=== PATIENT | female | born 1960 | race Caucasian/White ===

== ENCOUNTER 2020-06-13 07:50 | Outpatient (CLI) | payer OTHER, SELFPAY ==
--- NOTE | ~2020-06-13 | DEXA_ITS ---
Bone Density Report Name: Coral Mendez Age: 59 Sex: Female Ethnicity: White Date of : 1960 Indication: postmenopausal; hysterectomy; rheumatoid arthritis; Referring Provider: Ankita Patel Study: Bone densitometry was performed. Exam Date: June 13, 2020 Accession number: [id number] Bone Density: Region BMD T-score Z-score Classification AP Spine (L1-L4) 0.932 -1.0 0.5 Normal Femoral Neck (Left) 0.913 0.6 1.9 Normal Total Hip (Left) 1.131 1.6 2.6 Normal Total Hip Bilateral Avg 1.164 1.8 2.8 Normal Femoral Neck (Right) 0.897 0.4 1.8 Normal Total Hip (Right) 1.196 2.1 3.1 Normal World Health Organization criteria for BMD impression classify patients as: Normal (T-score at or above -1.0), Osteopenia (T-score between -1.0 and -2.5), or Osteoporosis (T-score at or below -2.5). 10-year Fracture Risk: FRAX not reported because: All T-scores for Spine Total, Hip Total, Femoral Neck at or above -1.0 Previous Exams: Region Exam Age BMD T-score BMD Change BMD Change Date g/cm2 vs Baseline vs Previous AP Spine(L1-L4) 06/13/2020 59 0.932 -1.0 -0.124(-11.7%) -0.043(-4.5%)* 01/27/2016 55 0.976 -0.6 -0.080(-7.6%)# -0.041(-4.0%)# 01/18/2014 53 1.016 -0.3 -0.039(-3.7%)# -0.005(-0.4%) 10/12/2011 51 1.021 -0.2 -0.035(-3.3%)# -0.035(-3.3%)# 08/04/2009 49 1.056 0.1 Total Hip(Left) 06/13/2020 59 1.131 1.6 0.002(0.1%)# 0.011(1.0%) 01/27/2016 55 1.120 1.5 -0.009(-0.8%)# 0.031(2.8%)# 01/18/2014 53 1.089 1.2 -0.040(-3.6%)# -0.094(-8.0%)* 10/12/2011 51 1.184 2.0 0.054(4.8%)# 0.054(4.8%)# 08/04/2009 49 1.130 1.5 Total Hip(Right) 06/13/2020 59 1.196 2.1 0.022(1.9%)# 0.036(3.1%)* 01/27/2016 55 1.161 1.8 -0.014(-1.2%)# -0.002(-0.2%)# 01/18/2014 53 1.163 1.8 -0.012(-1.0%)# 0.013(1.1%) 10/12/2011 51 1.150 1.7 -0.024(-2.1%)# -0.024(-2.1%)# 08/04/2009 49 1.174 1.9 *Denotes significance at 95% confidence level, LSC for AP Spine = 0.022 g/cm2, LSC for Total Hip = 0.027 g/cm2 Clinical Information Provided by Patient: Has rheumatoid arthritis Has used the following medications: Vitamin D Has the following medical conditions: Hysterectomy Patient maximum height was 66 Menopause Age: 45 No regular weight bearing exercise Drinks caffeinated beverages Onset of menses at age 11 Number of children 3 Impression: The patient has normal bone mass.
--- NOTE | ~2020-06-13 | MM_ITS ---
EXAMINATION: MM screening [facility] HISTORY: Screening mammogram TECHNIQUE: Craniocaudal and mediolateral oblique 3-D tomosynthesis images were obtained and synthetic 2-D images were generated. CAD analysis was submitted and interpreted. COMPARISON: 05/14/2019, 05/12/2018, 05/07/2017 BREAST PARENCHYMAL COMPOSITION: There are scattered areas of fibroglandular density. FINDINGS: There is no evidence of suspicious mass, calcification, or architectural distortion to sugg est malignancy in either breast. There has been no suspicious interval change. IMPRESSION: 1. No mammographic evidence of malignancy. 2. Recommend routine screening mammography in one year. BI-RADS Category 1: Negative Reviewed, dictated and finalized at location A.
== END 2020-06-13 07:51 | disposition home or self-care (01) ==
PROVIDERS: PCP Internal Medicine; Visit Provider Student in an Organized Health Care Education/Training Program
DX: Z12.31 Encounter for screening mammogram for malignant neoplasm of breast (principal); Z78.0 Asymptomatic menopausal state
CPT/HCPCS: 77063; 77067; 77080

== ENCOUNTER 2021-03-03 08:42 | Outpatient (CLI) | payer OTHER, SELFPAY ==
--- NOTE | ~2021-03-03 | CT_ITS ---
EXAMINATION: CT abdomen pelvis wo con EXAM DATE: 03/03/2021 08:56 INDICATION: K57.92 - Diverticulitis of intestine, part unspecified, without perforation or abscess wi thout bleeding. TECHNIQUE: Spiral CT of the abdomen and pelvis was performed without contrast. Axial, coronal and s agittal images of the abdomen and pelvis were reviewed. The dose-length product (DLP) for this exami nation was 1438.18 mGy-cm. The exposure was tailored according to patient size (auto mA exposure con trol), and iterative reconstruction (ASIR) was used as additional dose reduction technique. Compariso n is made to prior examination from 09/14/2011. FINDINGS: There is mild to moderate sigmoid and mild descending colonic diverticulosis. There is mild inflammation at the descending/sigmoid colonic junction, appearance consistent with acute uncomplica marquis diverticulitis. This is a different segment and was effected in 2010. The liver, spleen, adrenal glands and pancreas are unremarkable. Gallbladder is unremarkable. No bi liary obstruction. There is no nephrolithiasis or hydronephrosis. The uterus is not identified and has likely been surgically resected. The bladder is unremarkable. There is no retroperitoneal or p elvic lymphadenopathy. There is mild scattered arteriosclerotic disease. The appendix is normal. The stomach and small bowel are unremarkable. There is expected amount of c olonic stool. No free intraperitoneal gas. The heart is normal in size. There are no pericardial or pleural effusions. The lung bases are unremarkable. There are no osteoblastic or osteolytic les ions identified. IMPRESSION: 1. Mild uncomplicated descending/sigmoid colonic diverticulitis. Reviewed, dictated and finalized at location B.
== END 2021-03-03 08:43 | disposition home or self-care (01) ==
LOC: ANHIMG 08:43
PROVIDERS: PCP Internal Medicine; Visit Provider Internal Medicine
DX: K57.32 Diverticulitis of large intestine without perforation or abscess without bleeding (principal)
CPT/HCPCS: 74176

== ENCOUNTER 2021-04-17 01:07 | Day surgery (SDC) | payer OTHER, SELFPAY ==
[2021-03-30 14:32] VITALS: BMI 39.8
[2021-04-17 09:13] VITALS: BP 137/75; PULSE 88; RESP 18; TEMP 36.5; O2SAT 100
[2021-04-17] MEDS: LACTATED RINGERS 1,000 ML 150 ML IV CONT (09:27)
[2021-04-17 09:30] LABS: Glucose Point of Care 115 mg/dl (65-105)
--- NOTE | 2021-04-17 09:42 | WPDANESEPPF ---
Anes - Initial Pre Proc Eval Procedure: Operation Date: 04/17/21 10:15 Proposed Procedures p Colonoscopy - Vamsi Lovelace MD Date/Time: 04/17/21 09:42 Surgeon: Vamsi Lovelace MD Pre Op Diagnosis: Diverticulitis Patient Data Age: 60 Gender: F Height: 1.68 m Weight: 111.7 kg Last Vital Signs Temp 36.5 C 04/17/21 09:13 Pulse 88 04/17/21 09:13 Resp 18 04/17/21 09:13 BP 137/75 04/17/21 09:13 Pulse Ox 100 04/17/21 09:13 Allergies Allergy/AdvReac Type Severity Reaction Status Date / Time Cephalosporins Allergy Severe ITCHEY Verified 04/17/21 09:12 ibuprofen Allergy Severe EARS Verified 04/17/21 09:12 RINGING naproxen Allergy Severe ITCHEY Verified 04/17/21 09:12 lactose Allergy Intermediate Diarrhea Verified 04/17/21 09:12 NSAIDS (Non-Steroidal Allergy Mild Other Verified 04/17/21 09:12 Anti-Inflamma cephalexin [From Keflex] Allergy Unknown Itching Verified 04/17/21 09:12 Influenza Virus Vaccines Allergy Unknown RASH Verified 04/17/21 09:12 band aid adhessive AdvReac Unknown blisters Uncoded 04/17/21 09:12 Home Medications Medication Instructions Recorded Confirmed Type hydroxychloroquine 200 mg tablet 200 mg PO BID 09/18/19 04/17/21 History vitamin B complex 1 tablet PO DAILY 09/18/19 04/17/21 History fexofenadine 180 mg tablet 180 mg PO DAILY 11/04/19 04/17/21 History meloxicam 15 mg tablet 15 mg PO DAILY 11/04/19 04/17/21 History atorvastatin 10 mg tablet 10 mg PO DAILY #90 tablet 07/11/20 04/17/21 Rx metformin 500 mg tablet,extended 500 mg PO BID #180 tablet 07/11/20 04/17/21 Rx release 24 hr olmesartan 40 mg tablet 40 mg PO DAILY #90 tablet 07/11/20 04/17/21 Rx spironolactone 25 mg tablet 25 mg PO DAILY #90 tablet 07/11/20 04/17/21 Rx levothyroxine 150 mcg tablet 150 mcg PO DAILY #90 tablet 12/09/20 04/17/21 Rx cholecalciferol (vitamin D3) 50 50 mcg PO DAILY 03/21/21 04/17/21 History mcg (2,000 unit) capsule Laboratory Tests 04/17/21 09:26 POC Capillary Glucose 115 mg/dl H mg/dl (65-105) Patient hx anesthesia problems: none Family hx anesthesia problems: none PMFSH Past Medical History Medical History Acute pain of left knee Anxiety Arthritis Asthma Bronchitis Cervical vertebral fusion Constipation CPAP (continuous positive airway pressure) dependence DDD (degenerative disc disease) Depression Diarrhea Diverticulitis Diverticulosis Dizziness DM2 (diabetes mellitus, type 2) Fibroids Gout High cholesterol History of chemotherapy HTN (hypertension) Hyperlipidemia 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 Myofascial pain syndrome Pneumonia Rectal polyp Rheumatoid arthritis Sleep apnea Spinal stenosis UTI (urinary tract infection) Vertigo Wears glasses Surgical History Surgical History H/O spinal fusion H/O thyroidectomy H/O tubal ligation H/O: hysterectomy History of carpal tunnel release History of tonsillectomy Medial collateral ligament sprain of knee Family History Family History Mother Hypertension Family history of cardiovascular disease Family history of congestive heart failure Family history of hypercholesterolemia Cerebrovascular accident Family history of diabetes mellitus in first degree relative Family history of coronary artery disease Family history of premature coronary heart disease Family history of elevated blood lipids Family history of sleep apnea Family history of heart disease in male family member before age 55 Diabetes mellitus Patient's mother is in good health Grandparent Hypertension Family history of malignant neoplasm of breast Family history of coronary artery disease Diabetes mellitus Father Cerebrovascular accident Family history of alcoholism Patient's father is in good health Sibling Hypertens
--- NOTE | 2021-04-17 10:01 | PM.HPGS ---
History of Present Illness History of Present Illness Consent: Risks, benefits, and alternatives have been discussed and questions answered. Patient agrees to proceed with procedure. Chief complaint: Diverticulitis Narrative: Coral Mendez is a 60 year old female with colon polyps, last colonoscopy about 5 years ago. Two months ago had diverticulitis now asymptomatic. Review of Systems Constitutional: Constitutional: Denies headache(s) and Denies weakness Eyes: Eyes: Denies blurry vision ENT: Reports Normal hearing present, Denies headache(s) and Denies neck pain Cardiovascular: Cardiovascular: Denies chest pain and Denies dyspnea Respiratory: Respiratory: Denies dyspnea Gastrointestinal: Gastrointestinal: Reports no additional gastrointestinal complaints Genitourinary: Genitourinary: Denies dysuria Musculoskeletal: Musculoskeletal: Denies neck pain Integumentary/Breasts: Skin/Breast: Denies dry skin Neurologic: Reports Normal hearing present, Denies headache(s) and Denies weakness Psychiatric: Psychiatric: Denies anxiety Endocrine: Endocrine: Denies change in body appearance Hematologic/Lymphatic: Hematologic/Lymphatic: Denies easy bleeding Allergic/Immunologic: Allergic/Immunologic: Denies urticaria PMFSH Past Medical History Medical History Acute pain of left knee Anxiety Arthritis Asthma Bronchitis Cervical vertebral fusion Constipation CPAP (continuous positive airway pressure) dependence DDD (degenerative disc disease) Depression Diarrhea Diverticulitis Diverticulosis Dizziness DM2 (diabetes mellitus, type 2) Fibroids Gout High cholesterol History of chemotherapy HTN (hypertension) Hyperlipidemia 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 Myofascial pain syndrome Pneumonia Rectal polyp Rheumatoid arthritis Sleep apnea Spinal stenosis UTI (urinary tract infection) Vertigo Wears glasses Surgical History Surgical History H/O spinal fusion H/O thyroidectomy H/O tubal ligation H/O: hysterectomy History of carpal tunnel release History of tonsillectomy Medial collateral ligament sprain of knee Family History Family History Mother Hypertension Family history of cardiovascular disease Family history of congestive heart failure Family history of hypercholesterolemia Cerebrovascular accident Family history of diabetes mellitus in first degree relative Family history of coronary artery disease Family history of premature coronary heart disease Family history of elevated blood lipids Family history of sleep apnea Family history of heart disease in male family member before age 55 Diabetes mellitus Patient's mother is in good health Grandparent Hypertension Family history of malignant neoplasm of breast Family history of coronary artery disease Diabetes mellitus Father Cerebrovascular accident Family history of alcoholism Patient's father is in good health Sibling Hypertension Family history of alcoholism Other Carcinoma of colon Depression Family history of bipolar disorder Heart disease Social History Social History Smoking packs per day: 1 Smoking cigarettes per day: 20.0 Years smoked: 4 Smoking pack-years: 4.00 Smoking status: Former smoker Tobacco type: cigarettes Second hand tobacco smoke exposure: No Smoking end date: 09/16/91 Alcohol intake: never Living arrangements: with family Gender identity (if verbalized by the patient): Female Spiritual care concerns: No Meds Home Medications and Allergies Home Medications Medication Instructions Recorded Confirmed Type hydroxychloroquine 200 mg tablet 200 mg PO BID 09/18/19 04/17/21 History vitamin B complex 1 tablet PO DAILY 09/18/19 04/17/21 History fexofe
[2021-04-17 10:22] VITALS: BP 126/78; PULSE 77; RESP 17; O2SAT 98
[2021-04-17 10:32] VITALS: BP 128/78; PULSE 75; RESP 21; O2SAT 99
[2021-04-17 10:37] VITALS: BP 128/71; PULSE 75; RESP 21; O2SAT 99
[2021-04-17 10:42] VITALS: BP 128/79; PULSE 71; RESP 18; O2SAT 99
== END 2021-04-17 10:48 | disposition home or self-care (01) ==
PROVIDERS: PCP Internal Medicine; Visit Provider Internal Medicine Gastroenterology
PROC: 0DJD8ZZ Inspection of Lower Intestinal Tract, Via Natural or Artificial Opening Endoscopic (ICD-10-PCS; CPT 45378; principal; 2021-04-17 10:15)
DX: Z12.11 Encounter for screening for malignant neoplasm of colon (principal); K57.30 Diverticulosis of large intestine without perforation or abscess without bleeding; K64.8 Other hemorrhoids; Z86.010 Personal history of colon polyps; Z87.19 Personal history of other diseases of the digestive system; F41.8 Other specified anxiety disorders; E11.9 Type 2 diabetes mellitus without complications; I10 Essential (primary) hypertension; E78.5 Hyperlipidemia, unspecified; M06.9 Rheumatoid arthritis, unspecified; J45.909 Unspecified asthma, uncomplicated; M10.9 Gout, unspecified; G47.30 Sleep apnea, unspecified; Z98.1 Arthrodesis status; Z87.891 Personal history of nicotine dependence; Z79.84 Long term (current) use of oral hypoglycemic drugs
CPT/HCPCS: 45378; 82948; J2704; J7120

== ENCOUNTER 2021-04-27 11:03 | Outpatient (CLI) | payer OTHER, SELFPAY ==
--- NOTE | ~2021-04-27 | XR_ITS ---
EXAMINATION: XR knee LT min 4V DATE: 04/27/2021 11:29 INDICATION: Rheumatoid arthritis with rheumatoid factor. TECHNIQUE: 4 views of left knee were obtained. COMPARISON: Left knee radiographs 09/10/2019 FINDINGS: Bone alignment is normal. No fracture. There is mild osteoarthritis of medial and patellofe moral compartments characterized by tiny marginal osteophytes. No knee joint effusion. IMPRESSION: 1. Mild left knee osteoarthritis. Reviewed, dictated and finalized at location A.
--- NOTE | ~2021-04-27 | XR_ITS ---
EXAMINATION: XR knee RT min 4V DATE: 04/27/2021 11:29 INDICATION: Rheumatoid arthritis. TECHNIQUE: 4 views of right knee were obtained. COMPARISON: None. FINDINGS: Bone alignment is normal. No fracture. There is mild tricompartmental osteoarthritis. No kn ee joint effusion. IMPRESSION: 1. Mild right knee osteoarthritis. Reviewed, dictated and finalized at location A.
--- NOTE | ~2021-04-27 | XR_ITS ---
EXAMINATION: HAND-DEEPTHI ARTHRITIS 3+VIEWS DATE: 04/27/2021 11:29 INDICATION: Rheumatoid arthritis with rheumatoid factor. TECHNIQUE: Posteroanterior, lateral, and oblique views of the left and of the right hands as well as a ballcatchers view of both hands were obtained. COMPARISON: None. FINDINGS: Bone alignment is normal at the bilateral hands and wrists. No fractures. Polyarticular osteoarthriti s characterized by minimal to mild nonuniform joint space narrowing and tiny marginal osteophytes wit h typical distribution at the distal radioulnar, radiocarpal, triscaphe, first carpometacarpal and mu ltiple metacarpophalangeal and interphalangeal joints. No erosions to suggest an inflammatory arthrit is. Soft tissues are unremarkable. IMPRESSION: 1. Minimal to mild polyarticular osteoarthritis at the bilateral hands and wrists. No erosions to sug gest an inflammatory arthritis Reviewed, dictated and finalized at location A. IMPRESSION: 1. Minimal to mild polyarticular osteoarthritis at the bilateral hands and wris ts. No erosions to suggest an inflammatory arthritis
--- NOTE | ~2021-04-27 | XR_ITS ---
EXAMINATION: XR foot LT standing 2V, XR foot RT standing 2V DATE: 04/27/2021 11:29 INDICATION: Rheumatoid arthritis with rheumatoid factor TECHNIQUE: 1. Dorsoplantar and lateral views of the left foot were obtained. 2. Dorsoplantar and lateral views of the right foot were obtained. COMPARISON: None. FINDINGS: Normal alignment at the bilateral feet. No fracture. Mild polyarticular osteoarthritis with typical d istribution at the bilateral mid and forefeet including the bilateral first metatarsophalangeal and s everal tarsal metatarsal and interphalangeal joints. No erosions to suggest inflammatory arthritis loya ch as rheumatoid. Bilateral moderate-sized plantar calcaneal spurs. Soft tissues are unremarkable. No ankle joint effusions. IMPRESSION: 1. Relatively symmetric typical pattern of mild polyarticular osteoarthritis at the bilateral feet. Reviewed, dictated and finalized at location A. IMPRESSION: 1. Relatively symmetric typical pattern of mild polyarticular osteoarthritis at the bilateral feet.
== END 2021-04-27 11:04 | disposition home or self-care (01) ==
PROVIDERS: PCP Internal Medicine; Visit Provider Internal Medicine
DX: M06.872 Other specified rheumatoid arthritis, left ankle and foot (principal); M06.871 Other specified rheumatoid arthritis, right ankle and foot; M06.862 Other specified rheumatoid arthritis, left knee; M06.861 Other specified rheumatoid arthritis, right knee; M06.842 Other specified rheumatoid arthritis, left hand; M06.841 Other specified rheumatoid arthritis, right hand
CPT/HCPCS: 73130; 73564; 73620

== ENCOUNTER 2021-06-15 08:00 | Outpatient (CLI) | payer OTHER, SELFPAY ==
--- NOTE | ~2021-06-15 | MM_ITS ---
EXAMINATION: MM screening [facility] HISTORY: Screening TECHNIQUE: Craniocaudal and mediolateral oblique 3-D tomosynthesis images were obtained and synthetic 2-D images were generated. CAD analysis was submitted and interpreted. COMPARISON: Comparison to multiple prior studies sequentially, with oldest reviewed study dated 02/2015. BREAST PARENCHYMAL COMPOSITION: There are scattered areas of fibroglandular density. FINDINGS: There is no evidence of suspicious mass, calcification, or architectural distortion to sugg est malignancy in either breast. There has been no suspicious interval change. IMPRESSION: 1. No mammographic evidence of malignancy. 2. Recommend routine screening mammography in one year. BI-RADS Category 1: Negative Reviewed, dictated and finalized at location A.
== END 2021-06-15 08:01 | disposition home or self-care (01) ==
LOC: ANHIMG 08:01
PROVIDERS: PCP Internal Medicine; Visit Provider Student in an Organized Health Care Education/Training Program
DX: Z12.31 Encounter for screening mammogram for malignant neoplasm of breast (principal)
CPT/HCPCS: 77063; 77067

== ENCOUNTER → 2021-07-06 03:06 | Outpatient (CLI) | payer OTHER, SELFPAY ==
[2021-07-06 17:42] LABS: SARS-CoV-2 RNA PCR Negative
== END ==
PROVIDERS: PCP Internal Medicine; Visit Provider Internal Medicine
DX: Z20.822 Contact with and (suspected) exposure to COVID-19 (principal); B34.9 Viral infection, unspecified
CPT/HCPCS: C9803; U0003; U0005

== ENCOUNTER 2021-07-07 08:13 | Outpatient (CLI) | payer OTHER, SELFPAY ==
[2021-07-07 08:36] LABS: Add Urine Microscopic? YES; Appearance Urine Cloudy (Clear); Bacteria Urine Trace /hpf; Bilirubin Urine Negative (Negative); Blood Urine 1+ (Negative); Color Urine Yellow (Yellow); Glucose Urine UA 3+ mg/dL (Negative); Ketones Urine Negative (Negative); Leukocyte Esterase Ur 3+ LEU/UL (Negative); Mucus Urine Rare /lpf; Nitrate Urine Negative (Negative); Protein Urine Negative (Negative); Specific Grav Ur 1.007 (1.001-1.035); Squamous Epithelial Cell Urine Many /hpf (Few); Urobilinogen Urine Negative mg/dL (<2.0); WBC Urine >75 /hpf
== END 2021-07-07 08:14 | disposition home or self-care (01) ==
PROVIDERS: PCP Internal Medicine; Visit Provider Internal Medicine
DX: N39.0 Urinary tract infection, site not specified (principal)
CPT/HCPCS: 81001; 87077; 87086; 87186

== ENCOUNTER 2022-05-14 08:30 | Outpatient (CLI) | payer OTHER, SELFPAY ==
--- NOTE | 2022-05-14 | EST_ITS ---
Patient Info Name: Coral Mendez Age: 61 years : 1960 Gender: Female Ht: 66 in Wt: 255 lbs BSA: 2.38 m2 HR: 84 bpm BP: 107 / 53 mmHg Heart Rhythm: Sinus Rhythm Exam Date: 05/14/2022 9:45 AM Exam Location: [facility] Stress Patient Status: Outpatient Admit Date: 05/14/2022 Staff Ordering Physician: FALGUNI RAMIREZ MD Attending Provider: FALGUNI RAMIREZ MD Exercise Technologist: Anna Hernandez CT Nurse: lila bright Exam Type: CA stress mary w NM Study Info Indications Z01.810 - Encounter for preprocedural cardiovascular examination A regadenoson stress test was performed. Summary 1. Normal sinus rhythm - normal ECG. 2. No ST or T abnormalities noted following Lexiscan injection. 3. Clinically and electrocardiographically unremarkable Lexiscan stress test. 4. Myocardial perfusion imaging exam to be reported by Radiology. Protocol: Lexiscan Stress ECG Details Stage: REST Duration (min): 1 min : 9 sec HR (bpm): 85 SBP (mmHg): 107 DBP (mmHg): 53 Stage: REST Duration (min): 7 min : 34 sec HR (bpm): 84 SBP (mmHg): 107 DBP (mmHg): 53 Stage: STAGE 1 Duration (min): 0 min : 59 sec HR (bpm): 111 SBP (mmHg): 112 DBP (mmHg): 51 Stage: RECOVERY Duration (min): 1 min : 0 sec HR (bpm): 102 SBP (mmHg): 112 DBP (mmHg): 51 Stage: RECOVERY Duration (min): 2 min : 0 sec HR (bpm): 100 SBP (mmHg): 112 DBP (mmHg): 51 Stage: RECOVERY Duration (min): 3 min : 0 sec HR (bpm): 98 SBP (mmHg): 108 DBP (mmHg): 55 Stage: RECOVERY Duration (min): 3 min : 10 sec HR (bpm): 98 SBP (mmHg): 108 DBP (mmHg): 55 Rest HR: 84 bpm Peak HR: 112 bpm Rest Sys BP: 107 mmHg Peak Sys BP: 112 mmHg Max Pred HR: 157 bpm % Max Pred HR: 71 % Target HR: 133 bpm Max RPP: 12,544 bpm*mmHg Termination Reason: Completed protocol Cardiac Symptoms: None Total Time: 1 min : 0 sec Rest Piper BP: 53 mmHg Peak Piper BP: 51 mmHg Total Dose: 0.4 mg Resting ECG Normal sinus rhythm - normal ECG. Stress ECG No ST or T abnormalities noted following Lexiscan injection. Report Signatures
--- NOTE | ~2022-05-14 | NM_ITS ---
EXAMINATION: NM mary stress w perfusion DATE: 05/14/2022 10:58 INDICATION: Abnormal electrocardiogram. Preop. TECHNIQUE: Rest images were obtained following intravenous administration of 10.1 mCi Tc99m tetrofosm in (Myoview). The patient was infused intravenously with Lexiscan (regadenoson). Then, 31.78 mCi Tc99 m tetrofosmin (Myoview) was administered intravenously, and stress images were obtained. Data was rec onstructed into short axis and horizontal and vertical long axis SPECT images. Gated SPECT images wer e also obtained. COMPARISON: None. FINDINGS: There is no definite reversible or fixed perfusion abnormality to suggest ischemia or infar ction. There is no segmental wall motion abnormality. Left ventricular ejection fraction measures 6 1%. IMPRESSION: 1. No definite ischemia or infarct. 2. Normal left ventricular ejection fraction measuring 61%. Reviewed, dictated and finalized at location A.
== END 2022-05-14 08:31 | disposition home or self-care (01) ==
PROVIDERS: PCP Physician Assistant
DX: Z01.810 Encounter for preprocedural cardiovascular examination (principal)
CPT/HCPCS: 78452; 93017; A9502; J2785

== ENCOUNTER 2023-02-01 07:32 | Outpatient (CLI) | payer OTHER, SELFPAY ==
--- NOTE | ~2023-02-01 | MM_ITS ---
EXAMINATION: MM screening [facility] HISTORY: Screening mammogram TECHNIQUE: Craniocaudal and mediolateral oblique 3-D tomosynthesis images were obtained and synthetic 2-D images were generated. CAD analysis was submitted and interpreted. COMPARISON: 06/15/2021, 06/13/2020, 05/14/2019 BREAST PARENCHYMAL COMPOSITION: There are scattered areas of fibroglandular density. FINDINGS: No suspicious mass, calcification, or architectural distortion are identified in either bell ast to suggest malignancy. There has been no suspicious interval change. IMPRESSION: 1. No mammographic evidence of malignancy. 2. Recommend routine screening mammography in one year. BI-RADS Category 1: Negative Reviewed, dictated and finalized at location A.
== END 2023-02-01 07:33 | disposition home or self-care (01) ==
LOC: ANHIMG 07:35
PROVIDERS: PCP Physician Assistant; Visit Provider Registered Nurse
DX: Z12.31 Encounter for screening mammogram for malignant neoplasm of breast (principal)
CPT/HCPCS: 77063; 77067

== ENCOUNTER 2023-05-05 08:21 | Emergency (ER) | payer OTHER, SELFPAY ==
[2023-05-05 08:31] VITALS: BP 130/61; PULSE 106; RESP 18; TEMP 37; O2SAT 99
[2023-05-05 08:34] VITALS: BP 130/61; PULSE 106; RESP 18; TEMP 37; O2SAT 99
--- NOTE | 2023-05-05 08:44 | ED.GENADULT ---
HPI - General Adult General Chief complaint: Fever Stated complaint: fever Time Seen by Provider: 05/05/23 08:44 Source: patient Mode of arrival: ambulatory Limitations: no limitations History of Present Illness HPI narrative: 62-year-old female patient presents to the [facility] with complaints of fever as high as 101 that started yesterday along with body aches, low back pain and nausea. Patient states she has had UTIs before in the past but is very day when asked about any pain with urination or increase in frequency. Patient states she just overall does not feel well. Patient states that she has been vaccinated for COVID. Denies any chest pain, shortness of breath. Denies any nausea vomiting. Denies any congestion runny nose or sore throat. Related Data Home Medications Medication Instructions Recorded Confirmed vitamin B complex (B 1 tablet PO DAILY 09/18/19 05/05/23 Complex-Vitamin B12 tablet) fexofenadine 180 mg tablet 180 mg PO DAILY 11/04/19 05/05/23 (Sarah Allergy) cholecalciferol (vitamin D3) 50 25 mcg PO DAILY 10/29/22 05/05/23 mcg (2,000 unit) capsule pregabalin 25 mg capsule 25 mg PO BID 02/14/23 05/05/23 Allergies Allergy/AdvReac Type Severity Reaction Status Date / Time Cephalosporins Allergy Severe ITCHEY Verified 05/05/23 08:32 ibuprofen Allergy Severe EARS Verified 05/05/23 08:32 RINGING naproxen Allergy Severe ITCHEY Verified 05/05/23 08:32 lactose Allergy Intermediate Diarrhea Verified 05/05/23 08:32 NSAIDS (Non-Steroidal Allergy Mild Other Verified 05/05/23 08:32 Anti-Inflamma cephalexin [From Keflex] Allergy Unknown Itching Verified 05/05/23 08:32 Influenza Virus Vaccines Allergy Unknown RASH Verified 05/05/23 08:32 band aid adhessive AdvReac Unknown blisters Uncoded 05/05/23 08:32 Review of Systems Review of Systems: CONSTITUTIONAL: Positive fever, positive body aches and chills, denies sweats. EYES: Denies visual changes, redness, or discharge. ENT: Denies rhinorrhea, congestion, sore throat, or otalgia. CARDIOVASCULAR: Denies chest pain, palpitations, or edema. RESPIRATORY: Denies cough or dyspnea. GASTROINTESTINAL: Denies abdominal pain, positive nausea, denies vomiting, or diarrhea. GENITOURINARY: Denies dysuria or hematuria. SKIN: Denies rash or itching. MUSCULOSKELETAL: positive low back pain, denies joint pain, or myalgia. NEUROLOGIC: Denies headache, numbness, or weakness. PSYCHIATRIC: Denies anxiety or depression. 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 Myofascial pain syndrome Pneumonia Rectal polyp Rheumatoid arthritis with rheumatoid factor of multiple sites without organ or systems involvement Seronegative rheumatoid arthritis of multiple sites Sleep apnea Spinal stenosis Thyroid disease UTI (urinary tract infection) Vertigo Wears glasses Surgical History Surgical History H/O spinal fusion H/O thyroidectomy H/O tubal ligation H/O: hysterectomy History of carpal tunnel release History of tonsillectomy Medial collateral ligament sprain of knee Family History Family History Mother Hypertension Family history of diabetes mellitus in first degree relative Family history of coronary artery disease Family history of premature coronary heart disease Family history of elevated blood lipids Fa
== END 2023-05-05 09:11 | disposition home or self-care (01) ==
PROVIDERS: Emergency Provider Nurse Practitioner Family; PCP Physician Assistant
DX: N30.01 Acute cystitis with hematuria (principal); Z20.822 Contact with and (suspected) exposure to COVID-19; Z87.891 Personal history of nicotine dependence; M19.90 Unspecified osteoarthritis, unspecified site; J45.909 Unspecified asthma, uncomplicated; M47.812 Spondylosis without myelopathy or radiculopathy, cervical region; M47.816 Spondylosis without myelopathy or radiculopathy, lumbar region; E11.9 Type 2 diabetes mellitus without complications; M10.9 Gout, unspecified; E78.00 Pure hypercholesterolemia, unspecified; I10 Essential (primary) hypertension; E78.5 Hyperlipidemia, unspecified; K74.60 Unspecified cirrhosis of liver; K75.81 Nonalcoholic steatohepatitis (NASH); M05.79 Rheumatoid arthritis with rheumatoid factor of multiple sites without organ or systems involvement; E89.0 Postprocedural hypothyroidism; Z79.84 Long term (current) use of oral hypoglycemic drugs
CPT/HCPCS: 81003; 87086; 87088; 87426; 87804; 99213; C9803; G0463

== ENCOUNTER 2024-04-24 07:31 | Outpatient (CLI) | payer OTHER, SELFPAY ==
--- NOTE | ~2024-04-24 | MM_ITS ---
EXAMINATION: MM screening [facility] HISTORY: Screening TECHNIQUE: Craniocaudal and mediolateral oblique 3-D tomosynthesis images were obtained and synthetic 2-D images were generated. CAD analysis was submitted and interpreted. COMPARISON: Comparison to multiple prior studies sequentially, with oldest reviewed study dated 05/07 2. BREAST PARENCHYMAL COMPOSITION: Not dense: There are scattered areas of fibroglandular density. FINDINGS: There is no evidence of suspicious mass, calcification, or architectural distortion to sugg est malignancy in either breast. There has been no suspicious interval change. IMPRESSION: 1. No mammographic evidence of malignancy. 2. Recommend routine screening mammography in one year. BI-RADS Category 1: Negative Reviewed, dictated and finalized at location B.
== END 2024-04-24 07:32 | disposition home or self-care (01) ==
LOC: ANHIMG 07:31
PROVIDERS: PCP Internal Medicine; Visit Provider Nurse Practitioner Family
DX: Z12.31 Encounter for screening mammogram for malignant neoplasm of breast (principal)
CPT/HCPCS: 77063; 77067

== ENCOUNTER 2024-07-14 09:17 | Outpatient (RCR) | payer OTHER, SELFPAY ==
[2024-07-14 09:34] VITALS: BMI 42.3
[2024-07-14 09:35] VITALS: BMI 42.3
== END 2024-09-28 10:12 | disposition home or self-care (01) ==
LOC: ANHDMC 09:17
PROVIDERS: PCP Internal Medicine; Visit Provider Internal Medicine
DX: E11.9 Type 2 diabetes mellitus without complications (principal); Z71.3 Dietary counseling and surveillance
CPT/HCPCS: 97802

== ENCOUNTER 2025-06-11 07:56 | Outpatient (CLI) | payer OTHER, SELFPAY ==
--- NOTE | ~2025-06-11 | MM_ITS ---
EXAMINATION: MM screening mima BI w faith HISTORY: Screening TECHNIQUE: Craniocaudal and mediolateral oblique 3-D tomosynthesis images were obtained and synthetic 2-D images were generated. CAD analysis was submitted and interpreted. COMPARISON: None provided BREAST PARENCHYMAL COMPOSITION: There are scattered areas of fibroglandular density. FINDINGS: There is no evidence of suspicious mass, calcification, or architectural distortion to suggest malignancy in either breast. IMPRESSION: 1. No mammographic evidence of malignancy. 2. Recommend routine screening mammography in one year. BI-RADS Category 1: Negative Reviewed, dictated and finalized at location B.
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
--- OUTSIDE RECORDS SUMMARY | 2025-06-11 08:02 | XMS_ITS | Patient Health Record ---
Author Organization [facility] Address [address] [place] [address] Care Team Providers Care Ground Worker Name Role Phone Moustapha Hicks Primary Care Provider Mario McdanielDominique Unavailable [phone] Kt Sims Unavailable [phone] Allergies Allergen (clinical drug ingredient) Drug/Non Drug Allergy documented on EMR Reaction Allergy Type Onset Date Status cephalexin Cephalexin Unknown Drug Allergy 02/01/2018 Acti ve ibuprofen Ibuprofen Unknown Drug Allergy 02/01/2018 Active naproxen Naproxen Unknown Drug Allergy 02/01/2018 Active Adhesive Unknown Allergy 02/04/2018 Active Vaccine product containing Influenza virus antigen (medicinal product) Influenza Vaccines Unknown Drug Allergy 02/04/2018 Ac tive Results Component Value Reference Range Notes CBC W/DIFF Reviewed date:03/26/2025 03:41:01 PM Interpretation:Lab Result Generalized Performing Lab:[facility], [address], [place], [address] Notes/Report: WBC 9.0 3.5-10.5 10'3/uL RBC 4.34 (Based on docume nted legal sex) 3.80-5.20 10'6/uL HGB 13.1 (Based on docume nted legal sex) 11.6-15.4 g/dL HCT 38.8 (Based on docume nted legal sex) 34.0-45.0 % MCV 89.4 80.0-99.0 fL MCH 30.2 27.0-34.0 pg MCHC 33.8 32.0-35.5 g/dL RDW 11.9 11.0-15.0 % PLT 341 150-400 10'3/uL MPV 9.9 8.8-12.1 fL NRBC's 0.0 0.0 % Absolute NRBCs 0.0 No reference ran ge established 10'3/uL Neutrophils 57.7 34.0-73.0 % Lymphocytes 26.8 15.0-50.0 % Monocytes 9.2 1.0-15.0 % Eosinophils 5.0 0.0-8.0 % Basophils 0.7 0.0-2.0 % Immature Granulocytes 0.6 No defined reference range % Immature Granulocytes (IG) represents automated enumeration of Metamyelocytes, Myelocytes and Promyelocytes when IG is < 5%. Blasts are not included in IG and reported separately if present. Absolute Neutrophils 5.2 1.5-8.0 10'3/uL Absolute Lymphocytes 2.4 1.0-4.0 10'3/uL Absolute Monocytes 0.8 0.2-1.0 10'3/uL Absolute Eosinophils 0.5 0.0-0.6 10'3/uL Absolute Basophils 0.1 0.0-0.3 10'3/uL Absolute Immature Granulocytes 0.1 0.00-0.10 10'3/uL Reference ranges for nonbinary/intersex or unspecified gender patients have not been established. Please refer to the following table for ranges established for cisgender patients and evaluate in the clinical context of the individual patient: [email or web address].[email or web address] [email or web address] CMP(COMPREHENSIVE METABOLIC PANEL) Reviewed date:03/26/2025 03:41:01 PM Interpretation:Lab Result Generalized Performing Lab:[facility], [address] [place] [address], [address] Notes/Report: Sodium 141 133-146 mmol/L Potassium 4.6 3.5-5.1 mmol/L Chloride 100 98-107 mmol/L Carbon Dioxide 26 21-31 mmol/L Anion Gap 15 4-13 mmol/L Blood Urea Nitrogen 19 7-25 mg/dL Creatinine 0.84 0.60-1.30 mg/dL eGFRcr (CKD-EPI 2020) 77 >=60 mL/min/1.73 m2 Calcium 10.3 8.3-10.5 mg/dL Glucose 129 70-100 mg/dL Protein, Total 7.4 6.4-8.3 g/dL Albumin 4.9 3.5-5.0 g/dL ALT 24 9-43 units/L Alkaline Phosphatase 71 34-104 units/L AST 18 13-39 units/L Bilirubin, Total 0.7 0.2-1.2 mg/dL QUANTIFERON - TB GOLD PLUS, 1 TUBE Reviewed date:11/26/2024 03:51:02 PM Interpretation: Performing Lab:[facility], [place], [address] Notes/Report: Quantiferon TB Gold Negative Negative Nil 0.01 TB1-Nil 0.01 <=0.34 IU/mL TB2-Nil 0.00 <=0.34 IU/mL Mitogen-Nil 8.10 >=0.50 IU/mL A negative result indicates that M. tuberculosis infection is not likely. False negative results can occur. A Positive result indicates that M. tuberculosis infection is likely. The result does not differentiate between recently acquired or old infection, or between latent tuberculosis infection and active tuberculosis. Positive results in patients at low-risk for tuberculosis should be interpreted with caution and repeat testing on a new sample should be considered. An Indeterminate response indicates that results are indeterminate for TB antigen responsiveness. Indeterminate results can be seen in those with impaired immune function and will show a low mitogen response or be due to other intercurrent infections indicated by an elevated Nil value. Please refer to the following for additional M. tuberculosis information, 2017 ATS/IDSA/CDC Clinical Practice Guidelines for Diagnosis of Tuberculosis in Adults and Children CBC W/DIFF Reviewed date:11/26/2024 03:50:48 PM Interpretation:Lab Result Generalized Performing Lab:[facility], [place], [address] Notes/Report: WBC 7.4 3.5-10.5 10'3/uL RBC 4.21 (Based on docume nted legal sex) 3.80-5.20 10'6/uL HGB 13.0 (Based on docume nted legal sex) 11.6-15.4 g/dL HCT 40.1 (Based on docume nted legal sex) 34.0-45.0 % MCV 95.2 80.0-99.0 fL MCH 30.9 27.0-34.0 pg MCHC 32.4 32.0-35.5 g/dL RDW 12.1 11.0-15.0 % PLT 352 150-400 10'3/uL MPV 10.2 8.8-12.1 fL Neutrophils 56.3 34.0-73.0 % Lymphocytes 28.0 15.0-50.0 % Monocytes 10.0 1.0-15.0 % Eosinophils 5.1 0.0-8.0 % Basophils 0.5 0.0-2.0 % Immature Granulocytes 0.1 No defined reference range % Immature Granulocytes (IG) represents automated enumeration of Metamyelocytes, Myelocytes and Promyelocytes when IG is < 5%. Blasts are not included in IG and reported separately if present. Absolute Neutrophils 4.2 1.5-8.0 10'3/uL Absolute Lymphocytes 2.1 1.0-4.0 10'3/uL Absolute Monocytes 0.7 0.2-1.0 10'3/uL Absolute Eosinophils 0.4 0.0-0.6 10'3/uL Absolute Basophils 0.0 0.0-0.3 10'3/uL Absolute Immature Granulocytes 0.0 0.00-0.10 10'3/uL Reference ranges for nonbinary/intersex or unspecified gender patients have not been established. Please refer to the following table for ranges established for cisgender patients and evaluate in the clinical context of the individual patient: [email or web address].nm.org /[email or web address] CMP(COMPREHENSIVE METABOLIC PANEL) Reviewed date:11/26/2024 03:50:48 PM Interpretation:Lab Result Generalized Performing Lab:[facility], [address] [place] [address], [address] Notes/Report: Sodium 138 133-146 mmol/L Potassium 4.5 3.5-5.1 mmol/L Chloride 100 98-107 mmol/L Carbon Dioxide 30 21-31 mmol/L Anion Gap 8 4-13 mmol/L Blood Urea Nitrogen 16 7-25 mg/dL Creatinine 0.90 0.60-1.30 mg/dL eGFRcr (CKD-EPI 2020) 71 >=60 mL/min/1.73 m2 Calcium 10.1 8.3-10.5 mg/dL Glucose 86 70-100 mg/dL Protein, Total 7.4 6.4-8.3 g/dL Albumin 4.8 3.5-5.0 g/dL ALT 26 9-43 units/L Alkaline Phosphatase 57 34-104 units/L AST 19 13-39 units/L Bilirubin, Total 0.7 0.2-1.2 mg/dL Reason For Referral No Information Medications Medication SIG (Take, Route, Frequency, Duration) Notes Start Date End Date Status Vitamin D (Cholecalciferol) 25 MCG (1000 UT) take 4 tablets daily Oral Once a day Active Spironolactone 25 MG Oral Active Benicar 40 MG take 1 tablet (40 mg ) by oral route once daily Oral 1 Active Atorvastatin Calcium 10 MG take 1 tablet (10 mg) by oral route once daily at bedtime Oral 1 Active Baclofen 10 MG 1 tablet as needed Orally Twice a day; Duration: 30 days 03/25/2025 06/23/2025 Active Sarah-D Allergy & Congestion 180-240 MG take 1 tablet by oral route once daily on an empty stomach with glass of water Oral 1 Active Boniva Active metFORMIN HCl ER 500 MG 1 tablet with ev ening meal Orally Once a day; Duration: 30 day(s) Active Meloxicam 15 MG TAKE 1 TABLET BY ELISA TH DAILY; Duration: 90 Active Hydroxychloroquine Sulfate 200 MG TAKE 1 TABLET BY MOUTH TWICE DAILY; Duration: 90 Active Vitamin B12 100 MCG as directed Orally Active Orencia 125 MG/ML 1 mL Subcutaneous weekly; Duration: 90 days Active Levothyroxine Sodium 150 MCG 1 tablet in the morning on an empty stomach Orally Once a day; Duration: 30 day(s) Active Levothyroxine Sodium 125 MCG 1 tablet in the morning on an empty stomach Orally Once a day; Duration: 30 day(s) Active Social History Tobacco Use: Social History Observation Description Date Details (start date - stop date) Never Smoker NA - NA Household Question Answer Notes Marital status: Tobacco Control (Standard) Question Answer Notes Tobacco use: Nonsmoker Problems Problem Type SNOMED Code ICD Code Onset Dates Problem Status W/U Status Risk Notes Problem Tarsal tunnel syndrome (32404153) Tarsal tunnel syndrome, right lower limb (G57.51) Active confirmed Problem Rheumatoid arthritis (10296124) Rheumatoid arthritis without rheumatoid factor, multiple sites (M06.09) Active confirmed Problem Fibromyalgia (215480418) Fibromyalgia (M79.7) Active confirmed Problem Degenerative lumbar spinal stenosis (182187326) Degenerative lumbar spinal stenosis (M48.061) Active confirmed Problem JARAMILLO - Nonalcoholic steatohepatitis (905850945) JARAMILLO (nonalcoholic steatohepatitis ) (K75.81) Active confirmed Vital Signs Heart Rate 98 /min 03/25/2025 Temperature 98.1 degrees Fahrenheit 03/25/2025 Blood pressure diastolic 72 mm Hg 03/25/2025 Oximetry 96 % 03/25/2025 Height-cm 167.64 cm 03/25/2025 Weight-kg 113.4 kg 03/25/2025 Height 66 in 03/25/2025 Blood pressure systolic 108 mm Hg 03/25/2025 Weight 250.0 lbs 03/25/2025 BMI 40.35 kg/m2 03/25/2025 Encounters Encounter Location Date Provider Diagnosis [facility] [address] [place] [address] 07/28/2024 Dominique Du Rheumatoid arthritis without rheumatoid factor, multiple sites M06.09 ; JARAMILLO (nonalcoholic steatohepatitis) K75.81 ; Degenerative lumbar spinal stenosis M48.061 and High risk medication use Z79.899 [facility] [address] [place] [address] 07/28/2024 Kt Bethany Tarsal tunnel syndrome, right lower limb G57.51 [facility] [address] [place] [address] 08/25/2024 Kt Bethany Tarsal tunnel syndrome, right lower limb G57.51 [facility] [address] [place] [address] 11/24/2024 Dominique Du Rheumatoid arthritis without rheumatoid factor, multiple sites M06.09 ; JARAMILLO (nonalcoholic steatohepatitis) K75.81 ; Degenerative lumbar spinal stenosis M48.061 and High risk medication use Z79.899 [facility] [address] [place] [address] 03/25/2025 Dominique Du Rheumatoid arthritis without rheumatoid factor, multiple sites M06.09 ; JARAMILLO (nonalcoholic steatohepatitis) K75.81 ; Degenerative lumbar spinal stenosis M48.061 ; High risk medication use Z79.899 and Fibromyalgia M79.7 [facility] [address] [place] [address] 08/03/2024 Dominique Du [facility] [address] [place] [address] 09/24/2024 Dominique Mcdaniel Rheumatoid arthritis without rheumatoid factor, multiple sites M06.09 [facility] [address] [place] [address] 02/05/2025 Dominique Mcdaniel [facility] [address] [place] [address] 02/11/[address] [facility] [address] [place] [address] 03/10/2025 Dominique Mcdaniel [facility] [address] [place] [address] 03/16/2025 Dominique Mcdaniel Rheumatoid arthritis without rheumatoid factor, multiple sites M06.09 Assessments Encounter Date Diagnosis (ICD Code) Assessment Notes Treatment Notes Treatment Clinical Notes Section Notes 07/28/2024 Rheumatoid arthritis without rheumatoid factor, multiple sites (ICD-10 - M06.09) mildly symptomatic, continue orencia, plaquenil and mobic, return in 4 months 07/28/2024 Tarsal tunnel syndrome, right lower limb (ICD-10 - G57.51) Injection given to right tarsal tunnel consisting of 0.7cc's triamcinalone, 0.3cc,s marcaine, and 0.5cc's dexamethasone. Will possibly dispense malleotrain or malleotrain next visit. 08/25/2024 Tarsal tunnel syndrome, right lower limb (ICD-10 - G57.51) Patient evaluated and educated on cause as well as conservative treatment options Dispensed tri lock brace. 09/24/2024 Rheumatoid arthritis without rheumatoid factor, multiple sites (ICD-10 - M06.09) 11/24/2024 Rheumatoid arthritis without rheumatoid factor, multiple sites (ICD-10 - M06.09) stable for the most part, continue orencia, plaquenil and mobic, labs today, return in 4 months 03/16/2025 Rheumatoid arthritis without rheumatoid factor, multiple sites (ICD-10 - M06.09) 03/25/2025 Rheumatoid arthritis without rheumatoid factor, multiple sites (ICD-10 - M06.09) has a new diagnosis of fibromyalgia, start baclofenac, continue orencia, plaquenil and mobic, labs today, return in 6 months 03/25/2025 JARAMILLO (nonalcoholic steatohepatitis) (ICD-10 - K75.81) has a new diagnosis of fibromyalgia, start baclofenac, continue orencia, plaquenil and mobic, labs today, return in 6 months 03/25/2025 Degenerative lumbar spinal stenosis (ICD-10 - M48.061) has a new diagnosis of fibromyalgia, start baclofenac, continue orencia, plaquenil and mobic, labs today, return in 6 months 11/24/2024 JARAMILLO (nonalcoholic steatohepatitis) (ICD-10 - K75.81) stable for the most part, continue orencia, plaquenil and mobic, labs today, return in 4 months 07/28/2024 JARAMILLO (nonalcoholic steatohepatitis) (ICD-10 - K75.81) mildly symptomatic, continue orencia, plaquenil and mobic, return in 4 months 07/28/2024 Degenerative lumbar spinal stenosis (ICD-10 - M48.061) mildly symptomatic, continue orencia, plaquenil and mobic, return in 4 months 11/24/2024 Degenerative lumbar spinal stenosis (ICD-10 - M48.061) stable for the most part, continue orencia, plaquenil and mobic, labs today, return in 4 months 03/25/2025 High risk medication use (ICD-10 - Z79.899) has a new diagnosis of fibromyalgia, start baclofenac, continue orencia, plaquenil and mobic, labs today, return in 6 months 03/25/2025 Fibromyalgia (ICD-10 - M79.7) has a new diagnosis of fibromyalgia, start baclofenac, continue orencia, plaquenil and mobic, labs today, return in 6 months 07/28/2024 High risk medication use (ICD-10 - Z79.899) mildly symptomatic, continue orencia, plaquenil and mobic, return in 4 months 11/24/2024 High risk medication use (ICD-10 - Z79.899) stable for the most part, continue orencia, plaquenil and mobic, labs today, return in 4 months Plan Of Treatment Pending Test Test Name Order Date X ray : Ankle, right 07/28/2024 X ray : Foot, right 3v 07/28/2024 Next Appt Details Provider Name:Dominique Mcdaniel, 09/23 09:45:00 AM, [address] [address], [place], [address], Insurance Providers Payer Name Payer Address Payer Phone Subscriber Number Group Number Insured Name Patient Relationship to Insured Coverage Start Date Coverage End Date [facility] [employer] [address] [address] [place] [address] [id number] Thaddeus Mendez Spouse - patient is the spouse of the insured Hannah [address] [place] [id number] Coral Mendez Self - patient is the insured 9 Medical (General) History Medical History History ICD Code Diabetes mellitus type 2, controlled; Hypertension; JARAMILLO (nonalcoholic steatohepatitis); Rheumatoid arthritis; Surgical History Surgery Date(Month/Year) Thyroidectomy; 2018-02-04 carpal tunnel; 2018-02-04 Hystectomy; 2018-02-04 tonsilectomy; 2018-02-04 Fusion; 2018-02-04
--- OUTSIDE RECORDS SUMMARY | 2025-06-11 08:02 | XMS_ITS | Encounter Summary ---
Author Organization [facility] Healthcare Address [address] [place] [address] Care Team Providers Care Certified Registered Nurse Anesthetist Name Role Phone Rosalind Vital MD Primary Care Provider + Yemi Koch MD Primary Care Provider [phone] Hernandez Gasca Primary Care Provider Carmenza Aguirre MD Unavailable [phone] Encounter Details Date Type Department Care Team (Late st Contact Info) Description 12/20/2017 Orders Only [facility] INTERIM [phone] Dominique Mcdaniel MD [address] [facility] [address] [place] [address] Social History Tobacco Use Types Packs/Day Years Used Date Smoking Tobacco: Never Smokeless Tobacco: Never Alcohol Use Standard Drinks/Week Comments No 0 (1 standard drink = 0.6 oz pur e alcohol) Comments Unknown Sex and Gender Information Value Date Recorded Sex Assigned at Not on file Legal Sex Female 12:59 AM INTERNAL MEDICINE NURSE Gender Identity Female 04/02/2023 8:43 AM CDT Sexual Orientation Straight 04/02/2023 8: 43 AM CDT documented as of this encounter Plan of Treatment Not on file documented as of this encounter Visit Diagnoses Not on filedocumented in this encounter Care Teams Certified Registered Nurse Anesthetist Relationship Specialty Start Date End Date Rosalind Vital MD [address] [place] [address] PCP - General 12/19/17 12/24/17 Yemi Koch MD [address] [place] [address] PCP - General 12/25/17 05/02/22 Hernandez Gasac PA [address] [place] [address] PCP - General Physician Foundry Worker General 05/03/22 Carmenza Aguirre MD [address] [facility] [address] [place] [address] Rheumatology 05/04/22 documented as of this encounter
--- OUTSIDE RECORDS SUMMARY | 2025-06-11 08:02 | XMS_ITS | Clinical Summary ---
Author Organization [facility] Address [address] [facility] [place] [address] Care Team Providers Care Drilling Manager Name Role Phone Yemi Koch MD Primary Care Provider [phone] Source Comments [facility],non-owned Affiliates and Associated Physician Practices is amultiple site organization consisting of ambulatory clinics and hospital sitesin [place], [place], [place] and [place]. This disclosure is being madepursuant to the Care Everywhere program and may not contain all information available regarding this patient. Last updated 18.[facility] Allergies Active Allergy Reactions Criticality Noted Date Comments Cephalexin Itching Low 07/11/2015 Flu Virus Vaccine Rash Medium 07/11/2015 Ibuprofen Other Low 07/11/2015 Headache, Headache, Headache Lactose Diarrhea,Other Low 07/11/2015 ABD pain, ABD pain, ABD pain Naproxen Other Low 07/14/2015 Pt states that she cannot take aleve, Pt states that she cannot take aleve, Pt states that she cannot take aleve Medications * Be aware that medications may not be up to date on this document. Alwaysverify current medications with the patient. vortioxetine (TRINTELLIX) 10 MG tablet Take 10 mg by mouth DAILY. 0 6 Active levothyroxine (SYNTHROID) 125 MCG tablet Take 125 mcg by mouth daily before breakfast Active atorvastatin (LIPITOR) 10 MG tablet once daily 0 9 Active vitamin B-12 (CYANOCOBALAMIN ) 1000 MCG tablet Take 1,000 mcg by mouth once daily Active cyclobenzaprine (FLEXERIL) 10 MG tablet 3 times daily as needed 2 8 Active HUMIRA PEN 40 MG/0.4ML injection every 14 days 10 9 Active fexofenadine (TRUONG ALLERGY) 180 MG tablet 180 mg once daily 5 Active meloxicam (MOBIC) 15 MG tablet once daily 0 9 Active olmesartan (BENICAR) 40 MG tablet once daily 0 9 Active spironolactone (ALDACTONE) 25 MG tablet once daily 0 8 Active metFORMIN ER 24hr (GLUCOPHAGE XR) 500 MG tablet Take 1,000 mg by mouth 2 times daily Active Active Problems Problem Noted Date Diagnosed Date Cervical disc disorder 09/19/2016 Nonalcoholic steatohepatitis (JARAMILLO) 09/19/2016 Overview (12/16/2017): US 04/22/2015 fatty liver US 09/2013 mild diffuse hepatic steatosis Labs 03/2015: Plt 282, AP 83, AST 53, ALT 61, HBsAg negative, HCV Ab negative Labs 12/2014: nii negative Labs 09/2014: T bili 0.7, AP 89, AST 45, ALT 56 07/20/15 liver, AST biopsy: JARAMILLO, stage 2 08/2016 AP 68 , ALT 25, AST 21 Type 2 diabetes mellitus without complications 1 Overview (12/16/2024): IMO 12/16/2024 Obstructive sleep apnea 09/15/2015 Overview (12/16/2017): cpap Rheumatoid arthritis 09/15/2015 Essential (primary) hypertension 09/15/2015 Family History Medical History Relation Name Comments Hypertension Brother Frank Status: Alive Alcohol abuse Father CVA Father Dementia Father Macular Degeneration Father Status: Alive Cancer Maternal Grandmother breast CA; Status: Arthritis Mother Elevated Lipids Mother Heart Disease Mother Heart Failure Mother Hypertension Mother Kidney Disease Mother Status: Alive Cancer Paternal Grandmother Breast CA; Status: Alcohol abuse Sister 1 Sue Status: Alive Hypertension Sister 1 Sue None Known Sister 2 Astrid Status: Alive Relation Name Status Comments Brother Frank Father Maternal Grandmother Mother Paternal Grandmother Sister 1 Sue Sister 2 Astrid Social History Tobacco Use Types Packs/Day Years Used Date Smoking Tobacco: Former Cigarettes Q uit: 09/16/1990 Smokeless Tobacco: Never Alcohol Use Standard Drinks/Week Comments No 0 (1 standard drink = 0.6 oz pur e alcohol) Comments No Sex and Gender Information Value Date Recorded Sex Assigned at Not on file Legal Sex Female 5:45 PM DESIGN STUDIO CONSULTANT Gender Identity Not on file Sexual Orientation Not on file Last Filed Vital Signs Vital Sign Reading Time Taken Comments Blood Pressure 128/69 10/14/2018 1:28 PM DESIGN STUDIO CONSULTANT Pulse 94 10/14/2018 1:28 PM DESIGN STUDIO CONSULTANT Temperature 36.6 C (97.9 F) 10/14/2018 1:28 PM DESIGN STUDIO CONSULTANT Respiratory Rate 18 10/14/2018 1:28 PM DESIGN STUDIO CONSULTANT Oxygen Saturation 98% 10/14/2018 1:28 PM DESIGN STUDIO CONSULTANT Inhaled Oxygen Concentration - - Weight 113.4 kg (250 lb) 10/14/2018 1:28 PM DESIGN STUDIO CONSULTANT Height 167.6 cm (5' 6) 10/14/2018 1:28 PM DESIGN STUDIO CONSULTANT Body Mass Index 40.35 10/14/2018 1:28 PM DESIGN STUDIO CONSULTANT Plan of Treatment Health Maintenance Due Date Last Done Comments BONE DENSITY TESTING 1960 COLOGUARD (AGES 45-75) - COLON CA SCREENING 1958 COLON MONITORING 1958 COLONOSCOPY - COLON CA SCREENING 1958 CT COLONOGRAPHY - COLON CA SCREENING 1960 Colorectal Cancer Screening 1960 FIT - COLON CA SCREENING 1958 FLEX SIG - COLON CA SCREENING 1960 MAMMOGRAM 1960 HEPATITIS C SCREENING 06/26/1976 DTAP/TDAP/TD VACCINES (1 - Tdap) 1977 PNEUMOCOCCAL VACCINE 50+ (1 of 1 - PCV) 2008 ZOSTER VACCINE (1 of 2) 2008 Respiratory Syncytial Virus (RSV) Vaccine Pt: or over 60 yrs (1 - Risk 60-74 years 1-dose series) 2018 DIABETES-FOOT EXAM WITH MONOFILAMENT 09/02/2019 DIABETES-HGB A1C 09/02/2019 DIABETES-SERUM CREATININE 09/14/20202018, 09/15/2018, 08/30/2017, Additional history exists DEPRESSION SCREENING 09/16/2024 DIABETES - URINE PROTEIN SCREENING 09/16/2024 COVID-19 VACCINE ( season) 2025 HEPATITIS B VACCINE Aged Out No longe r eligible based on patient's age to complete this topic HIB VACCINE Aged Out No longer eligi ble based on patient's age to complete this topic HPV VACCINE Aged Out No longer eligi ble based on patient's age to complete this topic MENINGOCOCCAL (Group B) VACCINE SHARED DECISION-MAKING Aged Out No longer eligible based on patient's age to complete this topic MENINGOCOCCAL GROUPS A/C/Y/W VACCINE Aged Out No longer eligible based on patient's age to complete this topic Goals Goal Patient Goal Type Associated Problems Recent Progress Patient-Stated? Author Medication Management General On track( 019 1:28 PM DESIGN STUDIO CONSULTANT) Paulette Zhong RN Note: Expected end date: ongoing Interventions: Take all medications as prescribed Let your doctor know right away about any changes in your medications Make sure to request a refill of your medication at least one week prior to your last dose Procedures Procedure Name Priority Date/Time Associated Diagnosis Comments COMPREHENSIVE METABOLIC PANEL Routine 09/14/2019 7:19 AM DESIGN STUDIO CONSULTANT Nonalcoholic steatohepatitis (JARAMILLO) from Last 3 Months or Most Recently Relevant to Health Maintenance Results * (ABNORMAL) COMPREHENSIVE METABOLIC PANEL (09/14/2019 7:19 AM DESIGN STUDIO CONSULTANT) Glucose 131(H) 65 - 99 mg/dL [facility] Comment: Fasting reference interval For someone without known diabetes, a glucose value >125 mg/dL indicates that they may have diabetes and this should be confirmed with a follow-up test. BUN 14 7 - 25 mg/dL [facility] Creatinine 0.79 0.50 - 0.99 mg/dL [facility] Comment: For patients >49 years of age, the reference limit for Creatinine is approximately 13% higher for people identified as -Malagasy. eGFR by MDRD 81 > OR = 60 mL/min/1 .73m2 [facility] eGFR by MDRD 94 > OR = 60 mL/min/1 .73m2 [facility] BUN/Creatinine Ratio NOT APPLICABLE 6 - 22 (calc) [facility] Sodium 140 135 - 146 mmol/L [facility] Potassium 4.4 3.5 - 5.3 mmol/L [facility] Chloride 104 98 - 110 mmol/L [facility] CO2 28 20 - 32 mmol/L [facility] Calcium 9.6 8.6 - 10.4 mg/dL [facility] Protein Total 6.8 6.1 - 8.1 g/dL [facility] Albumin 4.6 3.6 - 5.1 g/dL [facility] Globulin Total 2.2 1.9 - 3.7 g/dL (calc) [facility] Albumin/Globulin Ratio 2.1 1.0 - 2.5 (calc) [facility] Bilirubin Total 0.5 0.2 - 1.2 mg/dL [facility] Alkaline Phosphatase 68 33 - 130 U/L [facility] AST 19 10 - 35 U/L [facility] ALT 22 6 - 29 U/L [facility] Comment: Test Performed at: [facility] [id number] [place] [id number] HELEN BARLOW DO,MPH Blood BLOOD SPECIMEN / Unknown 09/14/2019 7:19 AM DESIGN STUDIO CONSULTANT 09/14/2019 7:21 AM DESIGN STUDIO CONSULTANT Cordelia Hankins ARCHITECTURE INSTRUCTOR-DUMPCART DRIVER LAB - CHEMISTRY TERRELL AGUAYO Final Result [facility] [id number] [place] [address] from Last 3 Months or Most Recently Relevant to Health Maintenance Insurance [facility] Care Teams Drilling Manager Relationship Specialty Start Date End Date Yemi Koch MD [address] [place] [address] PCP - General 10/14/18
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
--- OUTSIDE RECORDS SUMMARY | 2025-06-11 08:02 | XMS_ITS | Encounter Summary ---
Author Organization [facility] - [facility] Address [address] [place] [address] Care Team Providers Care Director Volunteer Services Name Role Phone Flor Matos APRN Primary Care Provider [phone] Encounter Details Date Type Department Care Team (Late st Contact Info) Description 07/24/2023 [facility] Patient Accounts [address] [place] [address] [facility] Provider Action Required Social History Tobacco Use Types Packs/Day Years Used Date Smoking Tobacco: Former Cigarettes Smokeless Tobacco: Never Alcohol Use Standard Drinks/Week Comments Never 0 [...] Orientation Straight 01/24/2022 11 :09 AM CDT documented as of this encounter Plan of Treatment Not on file documented as of this encounter Visit Diagnoses Not on filedocumented in this encounter Additional Health Concerns Assessment Noted Time PHQ-9 Depression Total Score: 0 07/26/20 21 10:24 AM MANAGER [employer] documented as of this encounter Care Teams Director Volunteer Services Relationship Specialty Start Date End Date Flor Matos APRN [address] [facility] [address] [place] [address] PCP - General NURSE PRACTITIONER 12/21/22 documented as of this encounter
== END 2025-06-11 07:57 | disposition home or self-care (01) ==
LOC: ANHFOHIMG 07:59
PROVIDERS: Visit Provider Nurse Practitioner Family
DX: Z12.31 Encounter for screening mammogram for malignant neoplasm of breast (principal)
CPT/HCPCS: 77063; 77067